=== PATIENT | male | born 1950 | race American Indian/Alaskan Native ===

== ENCOUNTER 2018-06-05 12:28 | Emergency (ER) | payer MEDICARE ==
[2018-06-05 12:53] VITALS: TEMP 98.7
--- NOTE | 2018-06-05 14:05 | C.PDOC ---
History Of Present Illness 68 year old male presents to the emergency department with complaints of pain to his right great toe since one week ago. He denies any trauma, weakness, or numbness. Patient has not visited a drug safety data management specialist. Time Seen by Provider: 06/05/18 13:02 Chief Complaint (Nursing): Lower Extremity Problem/Injury History Per: Patient History/Exam Limitations: no limitations Onset/Duration Of Symptoms: Days Current Symptoms Are (Timing): Still Present Past Medical History Reviewed: Historical Data, Nursing Documentation, Vital Signs Vital Signs: Last Vital Signs Temp 98.7 F 06/05/18 12:50 Pulse 81 06/05/18 14:14 Resp 16 06/05/18 14:14 BP 142/85 06/05/18 14:14 Pulse Ox 99 06/05/18 14:28 Family History: States: No Known Family Hx - Social History Hx Alcohol Use: Yes Hx Substance Use: No Review Of Systems Except As Marked, All Systems Reviewed And Found Negative. Constitutional: Negative for: Fever, Chills Cardiovascular: Negative for: Chest Pain Respiratory: Negative for: Shortness of Breath Gastrointestinal: Negative for: Nausea, Vomiting Musculoskeletal: Positive for: Foot Pain (R 1st toe) Neurological: Negative for: Weakness, Numbness Physical Exam - Physical Exam Appears: Non-toxic, No Acute Distress Skin: Warm, Dry, No Rash Head: Atraumatic, Normacephalic Eye(s): bilateral: Normal Inspection Back: Normal Inspection Extremity: Other (great toe with mil erythema around nail margin, no fluctuance , no swelling, no drainage) Neurological/Psych: Oriented x3, Normal Speech, Normal Cognition ED Course And Treatment O2 Sat by Pulse Oximetry: 99 (RA) Pulse Ox Interpretation: Normal Progress Note: Keflex administered. On re-evaluation, patient is resting comfortably and tolerating PO. Patient will be discharged home. Disposition - Disposition Referrals: Yoav Khan DPM [Staff Provider] - Disposition: HOME/ ROUTINE Disposition Time: 14:03 Condition: STABLE Additional Instructions: Follow up with Heel Gummer within 1-2 days. Return to ED if feel worse. Prescriptions: Cephalexin [Keflex] 500 mg PO Q6 #28 cap Naproxen [Naprosyn] 1 tab PO BID PRN #25 tab PRN Reason: Pain Instructions: Cellulitis (Skin Infection), Adult (DC) Forms: vocaltap (Uzbek) - Clinical Impression Clinical Impression: Toe infection - PA / RESIDENTIAL MORTGAGE MANAGER / Resident Statement MD/DO has reviewed & agrees with the documentation as recorded. - Scribe Statement The provider has reviewed the documentation as recorded by the Scribe Shirin Pearce All medical record entries made by the Scribe were at my direction and personally dictated by me. I have reviewed the chart and agree that the record accurately reflects my personal performance of the history, physical exam, medical decision making, and the department course for this patient. I have also personally directed, reviewed, and agree with the discharge instructions and disposition.
[2018-06-05 14:14] VITALS: BP 142/85; PULSE 81; RESP 16
[2018-06-05 14:26] VITALS: O2SAT 99
== END 2018-06-05 14:14 | disposition home or self-care (01) ==
LOC: C.ER 12:28
DX: L08.9 Local infection of the skin and subcutaneous tissue, unspecified (principal)